=== PATIENT | male | born 1975 | race Caucasian/White ===

== ENCOUNTER → 2018-01-27 | Outpatient (CLI) | payer OTHER | LOC: CAT 09:30 | DX: J98.11 Atelectasis (principal) ==

== ENCOUNTER 2018-07-04 03:34 | Emergency (ER) | payer OTHER ==
[~2018-07-04] VITALS: Ht 185.4 cm; Wt 99.8 kg
[2018-07-04] MEDS ORDERED: ADDERALL 5 MG TA5 MG PO (03:40)
[2018-07-04] MEDS ORDERED: LIDOCAINE1 EACH TOP (04:41)
[2018-07-04] MEDS ORDERED: NAPROSYN500 MG PO (04:43)
[2018-07-04 04:54] VITALS: BP 147/80
== END 2018-07-04 04:55 | disposition home or self-care (01) ==
LOC: ER 03:34
DX: S20.211A Contusion of right front wall of thorax, initial encounter (principal); Y04.0XXA Assault by unarmed brawl or fight, initial encounter; Y93.89 Activity, other specified; Y92.89 Other specified places as the place of occurrence of the external cause; Y99.8 Other external cause status